=== PATIENT | female | born 2000 | race Caucasian/White ===

== ENCOUNTER 2022-07-19 06:55 | Inpatient (IN) | payer SELFPAY, OTHER ==
[2022-07-19] VITALS (15 sets, daily range): BP systolic 101–115; BP diastolic 57–75; PULSE 72–96; TEMP 36.5–36.9; O2SAT 97–100; BMI 26.9
--- NOTE | 2022-07-19 07:22 | PCM.HP.BLA ---
History and Physical Date of Admission: 07/19/22 Chief complaint: Induction of labor IUGR History present illness: 22-year-old G1, P0 at 37 weeks and 0 days with GUY 08/09/2022 arrives for induction of labor with IUGR. Denies headache, visual change, chest pain, shortness of breath, nausea vomit, right upper quadrant pain. Patient states good movement. is complicated by IUGR 2.5 percentile Obstetric history: G1: Current Past medical history: None Medications: None Allergies: No known drug allergies Past surgical history: None Family history: Denies history DVT or PE Social history: Denies smoking, alcohol use, drug use Review of systems: Besides above pertinent positives a full review of systems was performed and found to be negative Physical exam: Vitals: Blood pressure 107/67 pulse 96 General normal. No acute distress HEENT: Normocephalic/atraumatic no cervical lymphadenopathy Cardiac/respiratory: No use accessory muscles, nonlabored breathing Abdomen: Soft, nontender, gravid Extremities: No peripheral edema normal peripheral pulses Psych: Normal affect and demeanor nonpressured Labs: Pending Assessment plan: 22-year-old G1, P0 at 37 weeks and 0 days with IUGR for induction of labor Admit labor and delivery CEFM GBS negative Cytotec induction IUGR: EFW 2.5 percentile. Discussed case with soil and plant scientist yesterday
[2022-07-19] MEDS: Lactated Ringers 1,000 ML 50 ML IV (08:00)
[2022-07-19] MEDS: miSOPROStol 25 MCG TABLET VAGINAL ×2 (08:15→12:59)
[2022-07-19 08:40] LABS: Absolute Lymphocyte Count 1.48 X10^3/uL (0.83-4.51); Basophil# 0.03 X10^3/uL; Basophil% 0.3 % (0-1); Eosinophil# 0.04 X10^3/uL; Eosinophils% 0.4 % (0-5); Hematocrit 34.3 % (37-47); Hemoglobin 12.3 g/dL (12.0-15.0); Lymphocyte # 1.48 X10^3/ul (0.83-4.51); Lymphocyte % 16.1 % (19-41); Mean Corp Hgb Conc 35.9 g/dL (32-36); Mean Corpuscular Hgb 34.8 pg (27.0-32.0); Mean Corpuscular Volume 97.2 fL (81-99); Mean Platelet Vol. 9.3 fl (6.2-12.0); Monocyte# 0.58 X10^3/uL; Monocyte% 6.3 % (0-10); NRBC Flagged by Analyzer 0 % (0-5); Neutrophil # 7.02 X10^3/uL (2.7-7.7); Neutrophil % 76.1 % (47-70); Platelet Count 165 K/mm3 (150-450); RBC Distribution Width CV 12.7 % (11.6-14.6); RBC Distribution Width SD 45.1 fl (35.1-43.9); Red Blood Count 3.53 M/mm3 (4.2-5.4); White Blood Count 9.2 K/mm3 (4.4-11.0)
--- NOTE | 2022-07-19 12:48 | PCM.PN.OB ---
Subjective Subjective No complaints. Mild cramping with contractions Objective Data Objective Data Vital Signs: Vital Signs Temp Pulse BP 98.0 F 73 112/70 07/19/22 07:59 07/19/22 12:44 07/19/22 12:44 Weight: 142 lb 3.17 oz Body Mass Index (BMI) 26.9 Intake & Output: Intake and Output for Last 24 Hours 07/17/22 07/18/22 07/19/22 23:59 23:59 23:59 Intake Total Output Total 500 / 500 Balance -475 / -475 Lab / Micro Data Result Diagrams: 07/19/22 08:00 Labs: Laboratory Results - last 24 hr 07/19/22 08:00: WBC 9.2, RBC 3.53 L, Hgb 12.3, Hct 34.3 L, MCV 97.2, MCH 34.8 H, MCHC 35.9, RDW Std Deviation 45.1 H, RDW Coeff of Catrina 12.7, Plt Count 165, MPV 9.3, Immature Gran % (Auto) 0.800, Neut % (Auto) 76.1 H, Lymph % (Auto) 16.1 L, [place] % (Auto) 6.3, Eos % (Auto) 0.4, Baso % (Auto) 0.3, Absolute Neuts (auto) 7.0, Absolute Lymphs (auto) 1.48, Nucleated RBC % 0 07/19/22 08:00: Blood Type O POSITIVE, Antibody Screen NEGATIVE Physical Exam Const alert, oriented x3, no apparent distress, average body habitus, healthy appearing and well nourished HEENT normocephalic and moist oral mucous membranes Eyes PERRL Neck full ROM Resp normal respiratory effort, no retractions and no use of accessory muscles Extremity normal to inspection and full ROM Neuro moves all extremities and no focal motor deficits Psych mental status grossly normal, affect normal, speech normal and activity/motor behavior normal Assessment & Plan (1) : PLAN: Patient seen and examined. Cytotec dosing. Continue current management. No complaints. Going natural
[2022-07-19 13:55] LABS: Syphilis Antibodies Non-reactive
[2022-07-19 14:15] LABS: HIV - WCH Non-Reactive (Nonreactive); Hepatitis C Antibody Non-Reactive (Nonreactive)
[2022-07-19 15:20] LABS: ROM Internal Control Test YES-OK TO RESULT pt. (Internal QC)
[2022-07-19 15:21] LABS: ROM Patient Test POSITIVE (Negative)
[2022-07-19 16:16] LABS: Chlamydia Trachomatis by PCR Negative (Negative); Neisserai gonorrhoeae by PCR Negative (Negative)
[2022-07-19 16:17] LABS: Probe Check PASS; Sample Adequacy Control PASS; Specimen Processing Control PASS
--- NOTE | 2022-07-19 16:58 | PN.OBGYN_ITS ---
Subjective Subjective Patient feeling increased cramping with contractions Objective Data Objective Data Vital Signs: Vital Signs Temp Pulse BP Pulse Ox 98.3 F 90 101/61 97 07/19/22 16:25 07/19/22 15:36 07/19/22 15:36 07/19/22 12:50 Weight: 142 lb 3.17 oz Body Mass Index (BMI) 26.9 Intake & Output: Intake and Output for Last 24 Hours 07/17/22 07/18/22 07/19/22 23:59 23:59 23:59 Intake Total 525 / 525 Output Total 500 / 500 Balance Lab / Micro Data Result Diagrams: 07/19/22 08:00 Labs: Laboratory Results - last 24 hr 07/19/22 08:00: WBC 9.2, RBC 3.53 L, Hgb 12.3, Hct 34.3 L, MCV 97.2, MCH 34.8 H, MCHC 35.9, RDW Std Deviation 45.1 H, RDW Coeff of Catrina 12.7, Plt Count 165, MPV 9.3, Immature Gran % (Auto) 0.800, Neut % (Auto) 76.1 H, Lymph % (Auto) 16.1 L, [place] % (Auto) 6.3, Eos % (Auto) 0.4, Baso % (Auto) 0.3, Absolute Neuts (auto) 7. 0, Absolute Lymphs (auto) 1.48, Nucleated RBC % 0 07/19/22 08:00: Blood Type O POSITIVE, Antibody Screen NEGATIVE 07/19/22 12:30: Syphilis Total Ab Non-reactive 07/19/22 12:30: Hepatitis C Antibody Non-Reactive, HIV 1&2 Antibody Non-Reactive 07/19/22 14:20: Chlam trachomat DNA PCR Negative, N.gonorrhoeae DNA (PCR) Negative 07/19/22 15:00: Vag Amniotic Fld Detect POSITIVE H Physical Exam Const alert, oriented x3, no apparent distress, average body habitus, healthy appearing and well nourished HEENT normocephalic and moist oral mucous membranes Eyes PERRL Neck full ROM Resp normal respiratory effort, no retractions and no use of accessory muscles Extremity normal to inspection, full ROM and no clubbing, cyanosis or edema Neuro moves all extremities and no focal motor deficits Psych mental status grossly normal, affect normal, speech normal and activity/motor behavior normal Assessment & Plan (1) : PLAN: Patient seen and examined. Certainly feel increased cramping with contractions. Called by nursing earlier for SROM for clear fluid. We will continue current management and consider switching to Pitocin for induction
[2022-07-19] MEDS: Lactated Ringers 1,000 ML 200 ML IV ×2 (17:41→22:27)
[2022-07-19] MEDS: Oxytocin 15 Units/NS 250ml 15 UNITS/250 ML IV.SOLN 2 UNITS IV (21:45)
[2022-07-19] MEDS: LACTATED RINGERS 500 ML 999 ML IV (22:27)
[2022-07-20] VITALS (28 sets, daily range): BP systolic 70–128; BP diastolic 39–73; PULSE 67–117; RESP 14–18; TEMP 36.1–37.1; O2SAT 97–100
[2022-07-20] MEDS: Acetaminophen 500 MG Tablet PO (02:04)
[2022-07-20] MEDS: LACTATED RINGERS 500 ML 999 ML IV (02:57)
[2022-07-20] MEDS: Sodium Citrate/Citric Acid 30 ML UDC PO (03:18)
--- NOTE | 2022-07-20 03:21 | PN.OBGYN_ITS ---
Subjective Subjective Patient comfortable in bed Objective Data Objective Data Vital Signs: Vital Signs Temp Pulse Resp BP Pulse Ox O2 Del Method 98.1 F 111 H 16 108/70 99 Room Air 07/20/22 03:12 07/20/22 03:14 07/20/22 03:12 07/20/22 03:14 07/20/22 03:12 07/20/22 03:12 Oxygen Delivery Method Room Air Weight: 142 lb 3.17 oz Body Mass Index (BMI) 26.9 Intake & Output: Intake and Output for Last 24 Hours 07/18/22 07/19/22 07/20/22 23:59 23:59 23:59 Intake Total 2216.50 / 2216.50 803.47 / 803.47 Output Total 1100 / 1100 Balance 1116.50 / 1116.50 803.47 / 803.47 Lab / Micro Data Result Diagrams: 07/19/22 08:00 Labs: Laboratory Results - last 24 hr 07/19/22 08:00: WBC 9.2, RBC 3.53 L, Hgb 12.3, Hct 34.3 L, MCV 97.2, MCH 34.8 H, MCHC 35.9, RDW Std Deviation 45.1 H, RDW Coeff of Catrina 12.7, Plt Count 165, MPV 9.3, Immature Gran % (Auto) 0.800, Neut % (Auto) 76.1 H, Lymph % (Auto) 16.1 L, [place] % (Auto) 6.3, Eos % (Auto) 0.4, Baso % (Auto) 0.3, Absolute Neuts (auto) 7.0, Absolute Lymphs (auto) 1.48, Nucleated RBC % 0 07/19/22 08:00: Blood Type O POSITIVE, Antibody Screen NEGATIVE 07/19/22 12:30: Syphilis Total Ab Non-reactive 07/19/22 12:30: Hepatitis C Antibody Non-Reactive, HIV 1&2 Antibody Non-Reactive 07/19/22 14:20: Chlam trachomat DNA PCR Negative, N.gonorrhoeae DNA (PCR) Negative 07/19/22 15:00: Vag Amniotic Fld Detect POSITIVE H Physical Exam Const alert, oriented x3, no apparent distress, average body habitus, healthy appearing and well nourished HEENT normocephalic and moist oral mucous membranes Eyes PERRL Neck full ROM Resp normal respiratory effort, no retractions and no use of accessory muscles Extremity normal to inspection and full ROM Neuro moves all extremities and no focal motor deficits Psych mental status grossly normal, affect normal, speech normal and activity/motor behavior normal Assessment & Plan (1) : PLAN: Called by nursing with minimal variability attempted fluid bolus and oxygen, Pitocin turned off. Category 1 tracing after Pitocin turned off, instructed to keep Pitocin off for 1 to 2 hours. Later called after Pitocin break by nursing with Pitocin back on with minimal variability with late decelerations, recurrent late decelerations. Instructed by nursing to prepare for section. Patient seen and examined. Educated patient on findings of persistent category 2 tracing and need for section. Educated patient on the procedure risk benefits alternatives include but are not limited to visceral or vascular injury, prolonged hospitalization, blood loss need for transfusion, reoperation. Patient state understanding wish to proceed. All questions were answered and consent was signed. For section now. 2 g Ancef and 500 mg of azithromycin. Now with Pitocin off moderate variability no decelerations
[2022-07-20] MEDS: Cefazolin 2 GM in 0.9% Normal Saline 100 ML IV (03:25)
--- NOTE | 2022-07-20 04:22 | OP.PCM_ITS ---
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 Normal uterus, tubes, and ovaries. Consent: Patient with nonreassuring heart tones elects for primary low-transverse section Via Pfannenstiel incision. Patient understands the risk of the procedure include but are not limited to visceral or vascular injury, prolonged hospitalization, blood loss and need for transfusion, reoperation. Patient state understanding wish to proceed. All questions were answered and consent was signed. Procedure: Patient was brought back to the OR where spinal anesthesia was found to be adequate. 2 g of Ancef and 500 mg of azithromycin were given for infection prophylaxis. Patient was prepared and draped in a supine position with leftward tilt. A Pfannenstiel incision was made at the skin with a scalpel. The incision carried down to the fascia with a scalpel. The fascia was excised and extended laterally. Inferior aspect of the fascia was grasped with a clamp and the underlying rectus and pyramidalis muscle were dissected off sharply. In similar fashion the superior aspect of the fascia was grasped with a clamp and the underlying rectus muscle was dissected off sharply. Rectus muscle was dissected the midline down to the level of the pubic symphysis. Preperitoneal fatty tissue was noted peritoneum was entered bluntly. Peritoneum was extended superiorly and inferiorly with good visualization of bladder. Bladder blade was inserted and vesicouterine peritoneum was identified. Low transverse hysterotomy was made. Hand was placed into the incision and gentle fundal pressure was applied once the bladder blade was removed and the head was brought into the incision. Head and shoulders were delivered with ease. Cord was clamped and cut. Baby handed off to nursing. Placenta was delivered via cord traction and fundal massage. IV oxytocin was initiated in order to facilitate uterine contractions. Uterus was exteriorized and wiped out with dry laparotomy sponge in order to remove remaining placental membranes. Uterus was closed in continuous running fashion. [id number] sutures were used for hemostasis along with the Bovie. Good hemostasis was noted. Uterus was placed back into the abdominal cavity and the incision was reinspected, [place] was placed over the incision, good hemostasis was noted. Fascia was closed in a continuous running fashion with PDS suture. Subcutaneous irrigation was performed. Good hemostasis was noted. Skin was closed in a subcuticular fashion. All counts were correct x2. Patient tolerated the procedure well and was brought to recovery in a stable condition.
[2022-07-20] MEDS: Oxytocin 15 Units/NS 250ml 15 UNITS/250 ML IV.SOLN 83 UNITS IV (04:35)
[2022-07-20] MEDS: Lactated Ringers 1,000 ML 999 ML IV (05:15)
[2022-07-20] MEDS: Ketorolac 30 MG/ML Syringe IV ×4 (05:42→23:36)
[2022-07-20] MEDS: 0.9% Saline Lock 10 ML Syringe IV ×3 (05:42→23:36)
[2022-07-20] MEDS: Lactated Ringers 1,000 ML 100 ML IV (06:19)
[2022-07-20] MEDS: Acetaminophen 500 MG Tablet 1000 MG PO ×3 (07:49→20:06)
[2022-07-20] MEDS: Senna/Docusate Sodium 1 Tablet PO (13:46)
[2022-07-20] MEDS: Enoxaparin 40 MG/0.4 ML Syringe SC (16:22)
[2022-07-21] MEDS: Acetaminophen 500 MG Tablet 1000 MG PO ×2 (02:16→08:04)
[2022-07-21] MEDS: Ibuprofen 600 MG Tablet PO (05:33)
[2022-07-21 05:34] VITALS: BP 102/51; PULSE 91; RESP 16; TEMP 36.6
[2022-07-21 05:46] LABS: Hematocrit 26.3 % (37-47); Hemoglobin 8.8 g/dL (12.0-15.0); Mean Corp Hgb Conc 33.5 g/dL (32-36); Mean Corpuscular Hgb 34.1 pg (27.0-32.0); Mean Corpuscular Volume 101.9 fL (81-99); Mean Platelet Vol. 8.7 fl (6.2-12.0); Platelet Count 115 K/mm3 (150-450); RBC Distribution Width CV 13.1 % (11.6-14.6); RBC Distribution Width SD 48.3 fl (35.1-43.9); Red Blood Count 2.58 M/mm3 (4.2-5.4); White Blood Count 11.3 K/mm3 (4.4-11.0)
[2022-07-21 07:53] VITALS: BP 101/56; PULSE 92; RESP 15; TEMP 36.9; O2SAT 97
--- NOTE | 2022-07-21 08:46 | PN.OBGYN_ITS ---
Subjective Subjective Postop day 1. Feeling well. Pain controlled. Lochia minimal. Pumping. Objective Data Objective Data Vital Signs: Vital Signs Temp Pulse Resp BP Pulse Ox O2 Del Method 98.5 F 92 15 101/56 L 97 Room Air 07/21/22 07:53 07/21/22 07:53 07/21/22 07:53 07/21/22 07:53 07/21/22 07:53 07/21/22 07:53 Oxygen Delivery Method Room Air Weight: 64.5 kg Body Mass Index (BMI) 26.9 Intake & Output: Intake and Output for Last 24 Hours 07/19/22 07/20/22 07/21/22 23:59 23:59 23:59 Intake Total 2216.50 / 2216.50 3873.47 / 3873.47 Output Total 1100 / 1100 3850 / 3850 Balance 1116.50 / 1116.50 23.47 / 23.47 Lab / Micro Data Attestation: I reviewed the patient's lab results. Result Diagrams: 07/21/22 05:40 Labs: Laboratory Results - last 24 hr 07/21/22 05:40: WBC 11.3 H, RBC 2.58 L, Hgb 8.8 L, Hct 26.3 L, MCV 101.9 H, MCH 34.1 H, MCHC 33.5 D, RDW Std Deviation 48.3 H, RDW Coeff of Catrina 13.1, Plt Count 115 L, MPV 8.7 Physical Exam Const alert, oriented x3 and no apparent distress HEENT normocephalic Head and Scalp: atraumatic Neck full ROM Resp normal respiratory effort Cardio regular rate GI normal to inspection, nondistended, normoactive bowel sounds GI Narrative: Uterus 2 cm below umbilicus, dressing clean and dry Back/Spine normal ROM Extremity normal to inspection Extremity Narrative: Minimal pedal edema Neuro no focal motor deficits and no sensory deficits noted Psych mental status grossly normal and affect normal Assessment & Plan (1) Acute postoperative pain: PLAN: Postop day 1 status post primary section. Baby in special care f or glucose control. Doing well. Mom is pumping. Acute blood loss anemia secondary to surgery, iron supplement on home-going. Patient desires discharge today. Has follow-up scheduled next week.
--- NOTE | 2022-07-21 08:48 | DCINST_ITS ---
Discharge Instructions Diet Discharge Diet: No restrictions Activity Discharge Activity: Return to Normal Activity and May Shower May resume sexual activity in: 4-6 weeks Weight Bearing Status: Weight bearing as tolerated Lifting Restrictions: No greater than 25 pounds Dressing / Incision Call your doctor if your incision/area has: Continuous Slow Oozing, Increased Redness and Swelling at the incision site Call your doctor if you observe: Fever of 101 or Higher, Change in Color, Inability to urinate, Using more than 1 pad per hour, Shortness of breath, Dizziness, Swelling in the ankles, Chest pain and Calf discomfort Remove Dressing in: 1 week Cleanse incision/area with: Soap & Water and Keep Dressing Clean & Dry Follow Up Care Please Follow Up With: Octavia Mauro DO When: 2-week and 6-week visit Test Results: Test results from this visit will be discussed in further detail at your follow- up appointment, if applicable. Discharge Plan Admission Admit Date/Time: 07/19/22 06:55 Primary Reason for Your Visit: section Attending Provider: Power Mauro Primary Care Provider: Care PhysicianSuha Primary Instructions Additional Instructions / Restrictions: Regular diet. Okay to shower. No tub baths for 2 weeks. No lifting over 25 pounds for 2 to 3 weeks. No intercourse for 4 to 6 weeks. Call if fevers, chills, chest pain, shortness of breath. Follow-up 2 weeks postoperatively Discharge Orders/Prescriptions Prescriptions: New oxycodone 5 mg tablet 5 mg PO Q6H PRN (Reason: pain (scale score 7-10)) 4 Days Qty: 16 0RF Continued [id number] 1 mg Tablet 1 tab PO DAILY zinc Tablet,Chewable 1 tab PO DAILY magnesium Tablet 30 tab PO DAILY wheat germ oil 2 caplet OTHER DAILY Referrals / Follow Up: Care Physician,Suha Primary [Primary Care Provider] - Disposition Disposition (needs filled in before D/C Order can be placed): Home, Self Care
[2022-07-21] MEDS: Enoxaparin 40 MG/0.4 ML Syringe SC (10:15)
[2022-07-21] MEDS: Senna/Docusate Sodium 1 Tablet PO (10:15)
--- NOTE | 2022-07-25 15:03 | NURSING ---
Follow up phone call attempted, no answer. LVM
== END 2022-07-21 11:15 | disposition home or self-care (01) | DRG 787 ==
PROVIDERS: Admitting Provider Obstetrics & Gynecology; Referring Provider Obstetrics & Gynecology; Visit Provider Obstetrics & Gynecology
DX: O36.5930 Maternal care for other known or suspected poor fetal growth, third trimester, not applicable or unspecified (principal); D62 Acute posthemorrhagic anemia; O99.355 Diseases of the nervous system complicating the puerperium; O76 Abnormality in fetal heart rate and rhythm complicating labor and delivery; Z37.0 Single live birth; Z3A.37 37 weeks gestation of pregnancy; G89.18 Other acute postprocedural pain; O99.03 Anemia complicating the puerperium
CPT/HCPCS: 59025; 59050; 84112; 85025; 85027; 86703; 86780; 86803; 86850; 86900; 86901; 87491; 87591; 99221; J7120; A4216; G0378; J2405